=== PATIENT | male | born 1965 | race African-American/Black ===

== ENCOUNTER 2022-05-21 15:37 | Emergency (ER) | payer OTHER ==
[~2022-05-21] VITALS: Ht 182.9 cm; Wt 77.0 kg
[2022-05-21 15:46] VITALS: BP 184/110
== END 2022-05-21 17:09 | disposition home or self-care (01) ==
LOC: ER 15:37
DX: S01.01XA Laceration without foreign body of scalp, initial encounter (principal); I10 Essential (primary) hypertension; W22.01XA Walked into wall, initial encounter; W01.0XXA Fall on same level from slipping, tripping and stumbling without subsequent striking against object, initial encounter; Y93.F1 Activity, caregiving, bathing; Y93.89 Activity, other specified; Y92.9 Unspecified place or not applicable
CPT/HCPCS: 12002; 99282